=== PATIENT | male | born 1955 | race Caucasian/White ===

== ENCOUNTER 2016-10-30 10:15 | Emergency (ER) | payer BC ==
--- OUTSIDE RECORDS SUMMARY | 2016-10-30 11:03 | XMS REPORT | Continuity of Care Document ---
:1955 Author Organization [employer] [place] [address] Care Team Providers Name Role Phone Dennis Shin Primary Care Provider [phone] Source Comments This disclosure is being made pursuant to the [employer] program and maynot contain all information available regarding this patient.[employer] Active Allergies and Adverse Reactions No Known Allergies Current Medications Be aware that medications may not be up to date as of this document. Alwaysverify current medications with the patient. Prescription Sig. Disp. Refills Start Date End Date Status linaclotide Take 1 30 capsule 0 10/10/2016 Active (LINZESS) 145 MCG capsule by capsule mouth every morning before breakfast. HYDROcodone-acetami Take 1-2 60 tablet 0 10/24/2016 Active nophen (NORCO) tablets by 5-325 MG per tablet mouth every 6 (six) hours as needed for Pain (back pain). nabumetone Take 1 tablet 60 tablet 0 10/24/2016 Active (RELAFEN) 750 MG by mouth 2 tablet (two) times daily. methocarbamol Take 1 tablet 30 tablet 0 10/24/2016 Active (ROBAXIN) 750 MG by mouth 3 tablet (three) times daily. HYDROcodone-acetami Take 1 tablet 30 tablet 0 10/15/2016 10/24/2016 Discontinued nophen (NORCO) by mouth 5-325 MG per tablet every 6 (six) hours as needed for Pain (back pain). methocarbamol Take 750 mg 10/24/2016 Discontinued (ROBAXIN) 750 MG by mouth 3 tablet (three) times daily. nabumetone Take 750 mg 10/24/2016 Discontinued (RELAFEN) 750 MG by mouth. 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 10/10/2016 Telephone Family Medicine Dennis Shin, Constipation [employer]OPH[employer]ICS TE[employer]ER 10/10/2016 Telephone Family Medicine Dennis Shin, Medication Question [employer]OPHYSICS TEACHER (Request) 10/07/2016 Ophth Exam Ophthalmology Abdias Uribe Nonexudative senfranko Elder MD macular degeneration of retina (Primary Dx); Senile nuclear sclerosis, right; Senile nuclear sclerosis, left 10/07/2016 Documentation Ophthalmology Katy May, ORT Social History Tobacco Use Types Packs/Day Years Used Date Never Smoker Smokeless Tobacco: Former User Alcohol Use Drinks/Week oz/Week Comments Yes rarely Last Filed Vital Signs Vital Sign Reading Time Taken Blood Pressure 128/98 10/24/2016 9:14 AM CDT Pulse 81 10/24/2016 9:14 AM CDT Temperature 36.4 C (97.5 F) 10/24/2016 9:14 AM CDT Respiratory Rate 14 10/24/2016 9:14 AM CDT Height 1.778 m (5' 10") 10/24/2016 9:14 AM CDT Weight 61.689 kg (136 lb) 10/24/2016 9:14 AM CDT Body Mass Index 19.51 10/24/2016 9:14 AM CDT Oxygen Saturation 98% 10/24/2016 9:14 AM CDT Plan of Care Date Type Specialty Providers Description 11/05/2016 Appointment Ophthalmology Abdias Uribe MD [address] [address] [phone] (Fax) 11/18/2016 Appointment Ophthalmology Abdias Uribe MD [address] [address] [phone] (Fax) 11/27/2016 Appointment Abdias Calvert MD [address] [address] [phone] (Fax) 12/18/2016 [place] [address] [place] [id number] [phone] (Fax) Health Maintenance Due Date Last Done Comments Hepatitis C Screening 1975 Tetanus/Pertussis (1 - Tdap) 1976 Colonoscopy 2007 Well Adult Visit 2007 Influenza Immunization (#1) 2016 Results from Last 3 Months XR LUMBOSACRAL BENDING MIN 4 VIEW (10/20/2016)
[2016-10-30] MEDS ORDERED: NORMAL SALINE 1,000 ML IV ONE ×2 (11:05→12:02)
--- NOTE | 2016-10-30 11:06 | ERNOTE ---
Abdominal HPI - Narrative Date of Service: 10/30/16 - General Chief Complaint: Constipation Time Seen by Provider: 10/30/16 10:58 Source: patient - Immun/Allergies/Home Medications Immunizatons: IMMUNIZATION HX History of Influenza Vaccine No Hx Pneumococcal Vaccination No Allergies/Adverse Reactions: Allergies No Known Allergies Allergy (Verified 10/30/16 10:22) Home Medications: HOME MEDICATIONS oxyCODONE HCL/ACETAMINOPHEN [Percocet 5-325 mg Tablet] 1 each PO Q4H PRN #25 tablet 10/05/15 [Last Taken Unknown] Nabumetone 750 mg PO BID 10/30/16 [Last Taken Unknown] - History of Present Illness Narrative: 61-year-old male presents to the emergency room for constipation times one month. Patient states that he has flaky-shaped stool and that he has small amounts of liquid stool. He states that he has been taking uscu-oov-hoiuqsy anticonstipation medications Z Caroleen enemas at home to help but has had not any relief. He states he has also lost 10-15 pounds in the last few weeks. Is also complaining of low back pain. Date (Duration): 10/30/16 Timing: constant, getting worse Quality: moderate Activities at Onset: other - x 1 month Modifying Factors - (Improves): Present: defecating Modifying Factors - (Worsens): Present: eating Associated Symptoms: Present: back pain Prior Abdominal Problems: Present: none. Absent: recent trauma, similar symptoms Review of Systems - Review of Systems Constitutional: Present: weakness, fatigue, weight loss EYE: Present: no symptoms reported ENT: Present: no symptoms reported Respiratory: Present: no symptoms reported Cardiology: Present: no symptoms reported Gastrointestinal/Abdominal: Present: See HPI, nausea, constipation, abdominal pain, eating less, drinking less Genitourinary: Present: no symptoms reported Musculoskeletal: Present: See HPI, back pain Skin: Present: no symptoms reported Neurological: Present: no symptoms reported Endocrine: Present: no symptoms reported Hematologic/Lymphatic: Present: no symptoms reported Psych: Present: no symptoms reported - Patient's Past Medical History Patient History - Medical: Other Patient History - Cardiac/Respiratory: No pertinent hx Patient History - Cancer: No Hx of Cancer Patient History - Surgical Procedures: T & A Patient History - Other: None - Social History Living Situations: home Abuse History: No History of abuse Psych History: Hx of Anxiety Alcohol Use: occasionally Drug Use: none - Immunizations Hx Pneumococcal Vaccination: No History of Influenza Vaccine: No Physical Exam - Physical Exam Narrative: 61-year-old male presenting to the emergency room. He is well-dressed looks emaciated. Membranes are dry. Abdomen is soft but does have tenderness in the left lower quadrant and middle quadrant tenderness umbilical area. Denies tenderness to right lower quadrant. General Appearance: Present: wd/wn, alert, no apparent distress Eye Exam: Normal inspection: bilateral Ears, Nose, Throat: Present: normal ENT inspection, normal pharynx Neck: Present: normal inspection, nontender Respiratory: Present: no respiratory distress, normal breath sounds, chest nontender, lungs clear Cardiovascular/Chest: Present: regular rate, rhythm, no murmur, normal peripheral pulses Peripheral Pulses: N=norm/S=strong/W=weak/B=bound/A=absent: Radial (R): Normal, Radial (L): Normal Gastrointestinal/Abdominal: Present: tenderness - LLQ, abnormal bowel sounds. Absent: McBurney sign, Obturator sign, Hood sign, Psoas sign Back Exam: Present: normal inspection, normal range of motion, no vertebral tenderness, other - sacral discomfort Extremity Exam: Present: normal inspection, normal range of motion, no edema Neurological Exam: Present: alert, oriented, normal mood/affect, no motor/ sensory deficits Skin Exam: Present: normal color, warm/dry Lymphatic Exam: Present: no adenopathy ED Progress - Results and Orders Patient's Lab Results:: I have reviewed the patient's lab results. Results and Orders: elevated WBC, and other labs - Vital Signs Patient's Vital Signs:: I have reviewed the patient's vital signs. Vital Signs: Vital Signs 10/30/16 10:19 Temperature 36.6 C Pulse Rate 88 Respiratory 16 Rate Blood Pressure 142/85 O2 Sat by Pulse 100 Oximetry - CT/Ultrasound CT/Ultrasound Narrative: CT Abdomen/Pelvis W/ Contrast Findings: Lung bases: Images reveal bibasilar dependent atelectasis. ABDOMEN/PELVIS: Liver: Markedly abnormal appearance of liver with too numerous to count metastatic lesions identified. The largest rim-enhancing hypodensity at the anterior superior right hepatic lobe measures approximately 4.0 x 4.0 cm. The largest at the inferior medial left hepatic lobe measures 5.6 cm x 3.6 cm. A dominant right inferior hepatic lesion measures 3.2 x 4.0 cm. Spleen: Scattered calcified granulomas.. Pancreas: Unremarkable. Gallbladder: Distended and borderline hydropic. No pericholecystic inflammatory change. Adrenal glands: Unremarkable. Kidneys: No evidence of obstructive uropathy. Multiple bilateral renal cysts are noted. No discrete solid enhancing renal mass. Normal course and caliber of the ureters. No filling defect within the opacified portions of the ureters. Bowel: The stomach and small bowel are unremarkable. The appendix is not visualized. There is severe diffuse colonic stool retention. At the level the rectosigmoid colon there is a large heterogeneous mass with asymmetric bowel wall thickening extending into the right pelvis and presacral space. This mass measures approximately 6.3 cm transverse by 6.8 cm AP. Pelvic structures: There is anterior displacement of the prostate and seminal vesicles secondary to the large rectosigmoid mass. Urinary bladder is anteriorly displaced. The pelvic structures are otherwise unremarkable.. Vascular structures: Atherosclerotic changes are present throughout the normal caliber aorta and branching vessels. There is mild mass effect on the middle and right hepatic veins secondary to the hepatic masses. The portal veins and main portal veins appear to be patent. The splenic vein and superior mesenteric vein are patent. Lymphadenopathy: There is abnormal lymphadenopathy at the level of the right hepatorenal fossa with a prominent lymph node measuring 9 mm. There is a prominent lymph node in the left perinephric space measuring approximately 5 mm. There is pathologic right pelvic sidewall lymphadenopathy with a necrotic alban mass measuring 1.87 m AP by 1.57 m transverse. A right posterior pelvic sidewall lymph node measures 1.5 x 1.5 cm. A left presacral lymph node measures 1.3 x 1.5 cm. A prominent left presacral lymph node at the level of the S1 segment measures approximately 11 mm short axis dimension. There is no free fluid or fluid collections. No pneumoperitoneum. No hemoperitoneum. Osseous structures: There is a pathologic compression fracture at the right L1 vertebral body with a lytic lesion measuring approximately 3.2 cm AP by 2.9 cm transverse. There is heterotopic ossification in the region of the left ischial tuberosity. Abdominal wall: There is a small fat-containing umbilical hernia. IMPRESSION: Abnormal exam. There is a large rectosigmoid mass with pathologic pelvic necrotic lymph nodes and abnormal upper abdominal lymph nodes. Additionally, there is diffuse metastatic disease within the liver. There is osseous metastasis with a pathologic compression fracture at the right L1 vertebral body. Severe stool retention without evidence of bowel obstruction. Additional findings and comments are as above. Ordering provider Jaylon Ureña was informed regarding the above results via telephone on 10/30/2016 1:54 PM. - Progress/Reassessment Chief Complaint: Constipation Plan - Plan Plan: CT results and reported to me from Dr. Joe WANG. After speaking with Dr. Chandra regarding the CT results, he suggested patient be transferred to [facility] for possible surgery for therapeutic radiation or therapeutic colostomy related to patient's large amount of stool that he is unable to pass related to the large colon mass. Patient informed of his CT findings and need for transfer. Patient agrees to transfer at this time. Spoke with Dr. Gates at [facility] emergency room.He has agreed to accept this patient. Patient will be transferred Departure - Departure Clinical Impression: Mass of colon Disposition: Screened sent Dir. to [facility]. off Condition: Fair
[2016-10-30 11:20] LABS: Hematocrit 40.7 % (42.0-52.0); Hemoglobin 13.7 gm/dL (13.5-18.0); Mean Cell Volume 86.6 fl (78-100); Mean Corpuscular Hemoglobin 29.1 pg (27-31); Mean Corpuscular Hgb Conc 33.7 g/dl (32-36); Mean Platelet Volume 9.5 fl (6.0-9.5); Platelet Count 632 K/mm3 (150-450); Red Cell Distribution Width 14.8 % (11.5-14.0); White Blood Count 14.2 K/mm3 (4.0-10.5)
[2016-10-30 11:23] LABS: Total Cells Counted 100
[2016-10-30] MEDS ORDERED: DIATRIZOATE MEGLU/DIATRIZO SOD 30 ML BTL ONE (11:24)
[2016-10-30] MEDS ORDERED: DIATRIZOATE MEGLU/DIATRIZO SOD 30 ML BTL PO ONE (11:25)
[2016-10-30 11:35] LABS: Atypical (Reactive) Lymph 3 % (0-2); Eosinophil 1 % (0-3); Lymphocyte 11 % (20-51); Monocyte 8 % (0-9); Neutrophil 77 % (42-75); Neutrophil # 10.9 K/mm3 (1.3-6.0); Platelet Estimate Normal (NORMAL); RBC Morphology Normal (NORMAL)
[2016-10-30 11:52] LABS: BUN/Creatinine Ratio 18.3 (9.0-21.6); Bilirubin, Total 1.3 mg/dL (0.0-1.1); Ca. Corrected For Albumin 9.9 mg/dL (8.4-10.2); Calcium * 9.4 mg/dL (7.9-10.9); Carbon Dioxide 25.2 mmol/L (24-32.6); Potassium 5.2 mmol/L (3.4-4.6); Total Protein 7.9 gm/dL (6.2-8.2)
[2016-10-30 11:53] LABS: Urine Bilirubin Negative (NEGATIVE); Urine Blood Negative /ul (NEGATIVE); Urine Ketone Negative (NEGATIVE); Urine Nitrite Negative (NEGATIVE); Urine Protein 15 mg/dL (NEGATIVE); Urine Urobilinogen 4 EU/dl (NORMAL)
[2016-10-30 12:04] LABS: Urine Appearance Slightly Cloudy; Urine Bacteria None Seen; Urine Color Dark Yellow; Urine RBC 0-5 /hpf (0-5); Urine WBC TRACE /hpf (0-5)
[2016-10-30 12:13] LABS: Magnesium 2.2 mg/dL (1.2-2.8); Phosphorus 2.4 mg/dL (2.2-4.2)
[2016-10-30 12:22] LABS: Prothrombin Time (Patient) 10.9 Seconds (9.4-11.4)
[2016-10-30 12:27] LABS: INR 1.05 INR (0.90-1.10); Partial Thrombolplastin Time 28.2 Seconds (24-32)
[2016-10-30] MEDS ORDERED: MORPHINE SULFATE 2 MG/ML DISP.SYRIN IV ONE (14:45)
[2016-10-30] MEDS ORDERED: MORPHINE SULFATE 2 MG/ML DISP.SYRIN ONE (14:47)
[2016-10-30 14:52] VITALS: BP 153/96
== END 2016-10-30 16:00 | disposition short-term general hospital (02) ==
LOC: ER 10:15
DX: K63.9 Disease of intestine, unspecified (principal)